=== PATIENT | male | born 1970 | race African-American/Black ===

== ENCOUNTER → 2016-11-17 | Outpatient (CLI) | payer BC ==
[2014-06-24 12:33] VITALS: BP 142/79
[2016-11-17 08:53] LABS: ALANINE AMINOTRANSFERASE 41 Units/L (12-78); ALBUMIN 3.4 g/dL (3.4-5.0); ALKALINE PHOSPHATASE 136 Units/L (46-116); ASPARTATE AMINO TRANSFERASE 35 Units/L (15-37); BLOOD UREA NITROGEN 11 mg/dL (7-18); CALCIUM 9.3 mg/dL (8.5-10.1); CARBON DIOXIDE 29.2 mmol/L (21-32); CHLORIDE 104 mmol/L (98-107); CHOL/HDL RATIO 5.9 (0.0-5.0); CHOLESTEROL 265 mg/dL (0-200); CREATININE 1.18 mg/dL (0.70-1.30); HDL CHOLESTEROL 45 mg/dL (40-60); SODIUM 141 mmol/L (136-145); TOTAL PROTEIN 7.7 g/dL (6.4-8.2); TRIGLYCERIDES 214 mg/dL (0-150); eGFR BLACK RACES > 60 (>60); eGFR NON BLACK RACES > 60 (>60)
[2016-11-17 08:54] LABS: BASOPHILS # (AUTO) 0.1 X10^3/uL (0.0-0.1); EOSINOPHILS # (AUTO) 0.1 x10^3/uL (0.0-0.2); EOSINOPHILS % (AUTO) 1.4 % (0.9-2.9); HEMATOCRIT 43.6 % (42.0-54.0); HEMOGLOBIN 15.4 g/dL (13.5-18.0); LYMPHOCYTES # (AUTO) 2.5 X10^3/uL (1.3-2.9); MEAN CORPUSCULAR HEMOGLOBIN 28.7 pg (27.0-34.0); MEAN CORPUSCULAR HGB CONC 35.2 g/dL (33.0-35.0); MEAN CORPUSCULAR VOLUME 81.3 fL (80.0-100.0); MONOCYTES # (AUTO) 0.6 x10^3/uL (0.3-0.8); MONOCYTES % (AUTO) 8.9 % (0.0-13.0); NEUTROPHILS # (AUTO) 3.5 x10^3/uL (2.2-4.8); NEUTROPHILS % (AUTO) 51.7 % (42.0-75.0); PLATELET COUNT 316 X10^3/uL (150.0-450.0); RED BLOOD COUNT 5.36 X10^6/uL (4.7-6.0); RED CELL DISTRIBUTION WIDTH 14.9 % (11.6-16.5); WHITE BLOOD COUNT 6.7 X10^3/uL (3.6-10.0)
[2016-11-17 09:24] LABS: IRON 76 ug/dL (50-175); TOTAL IRON BINDING CAPACITY 294 ug/dL (250-450); TRANSFERRIN 236 mg/dL (202-364)
[2016-11-20 04:40] LABS: TESTOSTERONE FREE 94 pg/mL (47-244); VITAMIN D 25 OH 10 ng/mL (30-80)
[2016-11-20 04:41] LABS: METHYLMALONIC ACID <0.10 umol/L (0.00-0.40)
[2016-11-21 06:37] LABS: ESTROGENS TOTAL 16.3 pg/mL (19.0-69.0)
== END ==
LOC: LAB 07:55
PROVIDERS: ATTEND Nurse Practitioner Family
DX: R53.83 Other fatigue (principal); I10 Essential (primary) hypertension; E56.8 Deficiency of other vitamins; E29.1 Testicular hypofunction; E28.0 Estrogen excess
CPT/HCPCS: 36415; 80053; 80061; 82306; 82607; 82671; 82728; 82746; 83540; 83550; 83918; 84270; 84402; 84403; 84466; 85025

== ENCOUNTER → 2016-12-13 | Outpatient (CLI) | payer BC ==
[2014-06-24 12:33] VITALS: BP 142/79
== END ==
LOC: RAD 16:04
PROVIDERS: ATTEND Nurse Practitioner Family
DX: M79.672 Pain in left foot (principal)
CPT/HCPCS: 73630